=== PATIENT | female | born 1970 | race Two or more races ===

== ENCOUNTER 2022-02-16 10:40 | Emergency (ER) | payer SELFPAY ==
[~2022-02-16] VITALS: Ht 165.1 cm; Wt 61.7 kg
--- NOTE | 2022-02-16 10:52 | NUR ---
TO ER BED 8, BIB FAM C/O FEVER&CHILLS, COUGH x 2 DAYS, FROM [place] 3 DAYS AGO NEG HOME KIT COVID TEST YESTERDAY, AAOX3, BREATHING EVEN AND NON LABORED, SATTING 100% IN ROOM AIR
--- NOTE | 2022-02-16 12:45 | NUR ---
COVID SWAB DONE AND SENT TO LAB
[2022-02-16] MEDS ORDERED: IBUP-1955 PO (13:14)
[2022-02-16] MEDS ORDERED: BENZ-13 PO (13:14)
[2022-02-16] MEDS ORDERED: IBUPROFEN 600 MG TABLET ONE (13:28)
[2022-02-16] MEDS ORDERED: IBUPROFEN 600 MG TABLET PO ONE (13:30)
--- NOTE | 2022-02-16 13:31 | NUR ---
Patient discharged to home in stable condition. Written and verbal after care instructions given. Patient verbalizes understanding of instruction.
[2022-02-16 13:32] VITALS: BP 136/82
--- NOTE | 2022-02-17 10:29 | NUR ---
CHIKIS () MADE AWARE OF COVID POSITIVE RESULT
== END 2022-02-16 13:32 | disposition home or self-care (01) ==
LOC: ER 10:50
DX: U07.1 COVID-19 (principal); E03.9 Hypothyroidism, unspecified; Z91.041 Radiographic dye allergy status
CPT/HCPCS: 87426; 99283; C9803; U0003